=== PATIENT | male | born 2000 | race Caucasian/White ===

== ENCOUNTER 2022-12-22 11:21 | Outpatient (OUT) | payer BC, SELFPAY ==
[2022-12-22 12:08] LABS: Basophils Percent Auto 0.7 % (0.2-2.0); Eosinophils Percent Auto 0.7 % (0.9-7.0); Hemoglobin 16.8 g/dL (14.0-18.0); Immature Granulocytes Abs Auto 0.01 10^3/uL (0.00-0.03); Immature Granulocytes Pct Auto 0.2 % (0.0-0.5); Lymphocytes Absolute Auto 1.8 10^3/uL (1.2-3.8); Lymphocytes Percent Auto 40.4 % (20.5-60.0); Mean Corpuscular Volume 85.7 fL (80.0-94.0); Mean Platelet Volume 8.9 fL (9.5-13.5); Monocytes Absolute Auto 0.5 10^3/uL (0.3-0.8); Monocytes Percent Auto 11.9 % (1.7-12.0); Neutrophils Absolute Auto 2.1 10^3/uL (1.4-6.5); Neutrophils Percent Auto 46.1 % (43.0-75.0); Platelet Count 196 10^3/uL (150-450); Red Cell Distribution Width 12.4 % (11.0-15.0); White Blood Count 4.5 10^3/uL (4.0-11.0)
[2022-12-22 12:16] LABS: Estimated Average Glucose 97 mg/dL
[2022-12-22 12:44] LABS: Alanine Aminotransferase 34 U/L (16-63); Albumin Globulin Ratio 1.2; Albumin Level 4.5 g/dL (3.4-5.0); Alkaline Phosphatase 70 U/L (46-116); Anion Gap 13.2; Aspartate Amino Transferase 18 U/L (15-37); BUN Creatinine Ratio 9.1; Bilirubin Total 0.9 mg/dL (0.2-1.0); Calcium 9.4 mg/dL (8.5-10.1); Carbon Dioxide 27.7 mmol/L (21.0-32.0); Chloride 102 mmol/L (98-107); Estimated GFR (African America >60 (>=60); Estimated GFR (Non-African Ame >60 (>=60); Globulin 3.9 g/dL; Glucose 92 mg/dL (74-106); Potassium 3.9 mmol/L (3.5-5.1); Sodium 139 mmol/L (136-145); Total Protein 8.4 g/dL (6.4-8.2)
[2022-12-22 12:46] LABS: Chol HDL Ratio 2.8; Cholesterol 143 mg/dL (<=200); HDL Cholesterol 52 mg/dL (40-60); LDL Cholesterol Calculated 82.2 mg/dL; Triglycerides 44 mg/dL (<=150); VLDL CHOLESTEROL 8.8 mg/dL
[2022-12-23 06:08] LABS: HCV Ab Non Reactive (Non Reactive); HIV Ab/p24 Ag Screen Non Reactive (Non Reactive)
== END 2022-12-22 11:22 ==
LOC: LAB 11:25
PROVIDERS: PCP Nurse Practitioner Primary Care; Visit Provider Nurse Practitioner Primary Care
DX: Z00.00 Encounter for general adult medical examination without abnormal findings (principal); Z11.59 Encounter for screening for other viral diseases; Z11.4 Encounter for screening for human immunodeficiency virus [HIV]; Z13.6 Encounter for screening for cardiovascular disorders
CPT/HCPCS: 36415; 80053; 80061; 83036; 85025; 86803; 87389